=== PATIENT | female | born 1990 | race Caucasian/White ===

== ENCOUNTER → 2017-01-24 | Outpatient (CLI) | payer BC ==
[~2017-01-24] MED LIST: HYDR-3989 PO; IBUP-1547 PO; PREN1TAB77 PO
--- NOTE | 2017-01-24 17:34 | DI ---
Indication: ITS.REASON: S99.921A Injury of right foot PROCEDURE: MRI FOOT RIGHT W/O CONTRAST: Encounter: Initial Comparison: None Technique: Multiplanar multisequence MR imaging of the right foot was performed without contrast. Findings: There is normal alignment of the hindfoot, midfoot, and forefoot joints without dislocation subluxation. There is normal and the ankle joint. There are no acute fractures demonstrated. There is a noted to be a subcutaneous soft tissue swelling and edema along the lateral aspect of the midfoot forefoot junction and extending into the lateral forefoot soft tissues. The extensor tendon about the fifth toe extends through area of soft tissue swelling without] for abnormal signal or disruption. There is no significant joint effusion. The posterior tibialis, flexor digitorum longus, and flexor hallucis longus tendons are intact and unremarkable. The peroneal longus and brevis tendons are intact. The Achilles tendon is within normal limits. Plantar fascia is intact and unremarkable. Impression: 1. Soft tissue swelling/edema demonstrated along the lateral aspect of the midfoot and forefoot region. Visualized ligaments and tendons are intact and unremarkable. There is no evidence for fracture or malalignment. No significant joint effusions are identified. .
== END ==
LOC: IMA 13:51
PROVIDERS: ATTEND Family Medicine Sports Medicine
DX: M79.89 Other specified soft tissue disorders (principal)